=== PATIENT | male | born 1955 | race Caucasian/White ===

== ENCOUNTER 2017-12-27 17:15 | Inpatient (IN) | payer MEDICAID, OTHER ==
[2017-12-27] MEDS ORDERED: Sodium Chloride 0.9% 1,000 ML IV ONE ×2 (17:30→18:31)
[2017-12-27] MEDS ORDERED: Alum-Mag Hydrox-Simethicone Susp (30 mL) PO STA (17:31)
--- NOTE | 2017-12-27 17:42 | C.PDOC ---
History Of Present Illness 62 yo male c/o diarrhea and abdominal pain for 5 days. Pt notes he feels "gases " . (+) decrease appetite . Notes he was given an antibiotic from a neighbor for the symptoms. Also notes other family members had same symptoms with quicker resolution. Pt admits to having a h/o HTN and DM and has not taken his medication in 1.5+ yrs stating he can not afford the medication/doctor visits. ( +) weight loss (+) thirst. Denies chest pain , sob, dizziness, dysuria, urinary frequency, nausea or vomiting. Time Seen by Provider: 12/27/17 17:18 Chief Complaint (Nursing): Abdominal Pain History Per: Patient History/Exam Limitations: no limitations Onset/Duration Of Symptoms: Days (5) Current Symptoms Are (Timing): Still Present Past Medical History Vital Signs: Last Vital Signs Temp 97.8 F 12/27/17 17:25 Pulse 96 H 12/27/17 17:25 Resp 18 12/27/17 17:25 BP 157/101 H 12/27/17 17:25 Pulse Ox 97 12/27/17 17:43 - Medical History PMH: Arthritis, HTN Surgical History: Back Surgery Family History: States: Unknown Family Hx - Social History Hx Alcohol Use: No Hx Substance Use: No - Immunization History Hx Tetanus Toxoid Vaccination: No Hx Influenza Vaccination: No Hx Pneumococcal Vaccination: No Review Of Systems Except As Marked, All Systems Reviewed And Found Negative. Gastrointestinal: Positive for: Abdominal Pain, Diarrhea Physical Exam - Physical Exam Appears: Well, Non-toxic, No Acute Distress Skin: Normal Color, Warm, Dry Head: Atraumatic, Normacephalic Eye(s): bilateral: Normal Inspection, PERRL, EOMI Nose: Normal Oral Mucosa: Moist Neck: Normal, Normal ROM, Supple Chest: Symmetrical Cardiovascular: Rhythm Regular Respiratory: Normal Breath Sounds Gastrointestinal/Abdominal: Bowel Sounds, Soft, Tenderness (diffuse), Distention Back: Normal Inspection Extremity: Normal ROM Neurological/Psych: Oriented x3, Normal Speech ED Course And Treatment - Laboratory Results Result Diagrams: 12/27/17 18:00 O2 Sat by Pulse Oximetry: 97 - Other Rad Obstructive Series X-Ray: Interpreted by Me (Dr Sky), Viewed By Me Interpretation: (+) air fluid levels Progress Note: Case discussed and workup reviewed with Dr Sky, agree dupon plan and treatment. Case endorsed to Dr Pires pending labs, CT, and re -evalaution. Disposition - Disposition Disposition Time: 19:00 Condition: STABLE Forms: [employer] ([place]) - Clinical Impression Clinical Impression: Abdominal pain, Hypokalemia, HTN (hypertension), Diarrhea
[2017-12-27] MEDS ORDERED: Sodium Chloride 0.9% 1,000 ML ONE (17:46)
[2017-12-27] MEDS ORDERED: Alum-Mag Hydrox-Simethicone Susp (30 mL) ONE (17:46)
[2017-12-27 18:08] LABS: SQUAMOUS EPITHIAL < 1 /hpf (0-5); URINE BACTERIA RARE (<OCC); URINE BILIRUBIN NEGATIVE (NEGATIVE); URINE BLOOD NEGATIVE (NEGATIVE); URINE CLARITY Clear (Clear); URINE COLOR Yellow (YELLOW); URINE GLUCOSE (UA) 3+ mg/dL (Normal); URINE LEUKOCYTE ESTERASE NEG Leu/uL (Negative); URINE PROTEIN 2+ mg/dL (NEGATIVE); URINE UROBILINOGEN NORMAL mg/dL (0.2-1.0)
[2017-12-27 18:15] LABS: ALB/GLOB RATIO 1.2 (1.0-2.1); ALBUMIN 3.8 g/dL (3.5-5.0); ALT/SGPT 28 U/L (21-72); AST/SGOT 19 U/L (17-59); BLOOD UREA NITROGEN 18 mg/dL (9-20); CALCIUM 8.2 mg/dl (8.6-10.4); GFR AFRICAN-AMERICAN > 60; GFR NON-AFRICAN AMERICAN > 60; LIPASE 85 U/L (23-300)
[2017-12-27 18:21] LABS: LYMPH # 0.9 K/uL (1.0-4.3)
[2017-12-27] MEDS ORDERED: Iohexol 240 (50 ml) PO STA (18:28)
[2017-12-27] MEDS ORDERED: Iohexol 240 (50 ml) ONE (18:33)
[2017-12-27 18:38] LABS: BASO % 0.4 % (0.0-2.0); EOS % 0.2 % (0.0-4.0); HEMOGLOBIN 16.5 g/dL (12.0-18.0); LYMPH % 12.9 % (20.0-40.0); MEAN CORPUSCULAR HEMOGLOBIN 31.6 pg (27.0-31.0); MEAN CORPUSCULAR HGB CONC 35.9 g/dL (33.0-37.0); MEAN PLATELET VOLUME 8.3 fL (7.2-11.7); MONO # 1.3 K/uL (0.0-0.8); MONO % 17.9 % (0.0-10.0); NEUT % 68.6 % (50.0-75.0); NRBC % 0.1 % (0.0-2.0); RBC 5.23 Mil/uL (4.40-5.90); RED CELL DISTRIBUTION WIDTH 12.7 % (11.5-14.5); WHITE BLOOD COUNT 7.3 K/uL (4.8-10.8)
[2017-12-27] MEDS ORDERED: Iodixanol 320 MG/ML 200 ML BOTTLE IV ONE (20:02)
--- NOTE | 2017-12-27 21:19 | CT ---
EXAM: CT Abdomen and Pelvis With Intravenous Contrast CLINICAL HISTORY: 62 years old, male; Signs and symptoms; Other: Diarrhea x 4 days & abd pain; Patient HX: R/O obstruction; Additional info: R/ o obstruction TECHNIQUE: Axial computed tomography images of the abdomen and pelvis with intravenous contrast. All CT scans at this facility use one or more dose reduction techniques, viz.: automated exposure control; ma/kV adjustment per patient size (including targeted exams where dose is matched to indication; i.e. head); or iterative reconstruction technique. Coronal and sagittal reformatted images were created and reviewed. CONTRAST: 100 mL of visipaque administered intravenously. COMPARISON: No relevant prior studies available. FINDINGS: Lung bases: Minimal atelectasis/scarring. Heart: Coronary artery calcifications. Mediastinum: Moderate to large hiatal hernia. Mild mural thickening vs underdistention of distal esophagus. ABDOMEN: Liver: Unremarkable. No mass. Gallbladder and bile ducts: No calcified stones. No ductal dilation. Pancreas: No ductal dilation. No mass. Spleen: No splenomegaly. Adrenals: No mass. Kidneys and ureters: Mild stranding about kidneys, nonspecific. No hydronephrosis. Stomach and bowel: Mild to moderately dilated loops of mid small bowel. Nondistended loops of distal small bowel. Mild stranding within associated mesentery. No definite mural thickening. Appendix: Normal caliber. No inflammation. PELVIS: Bladder: Unremarkable. Reproductive: Enlarged prostate gland with indentation of bladder. ABDOMEN and PELVIS: Intraperitoneal space: Small free fluid within lower abdomen/upper pelvis. No free air. Bones/joints: Degenerative changes of spine. Few healing/healed rib fractures. Soft tissues: Small umbilical hernia containing fat. Small paraumbilical hernia containing fat. Small RIGHT inguinal hernia containing fat. Atrophy of right rectus femoris muscle. Scattered areas of heterotopic ossification within thighs. Vasculature: Mild atherosclerotic disease. No aneurysm. Lymph nodes: No pathologically enlarged lymph nodes. IMPRESSION: 1. Findings suggestive of small bowel obstruction. 2. Prostate enlargement. Followup as clinically warranted. 3. Incidental/non-acute findings are described above.
[2017-12-27] MEDS ORDERED: Sodium Chloride 0.9% 1,000 ML IV SCH (22:15)
--- NOTE | 2017-12-27 22:23 | CP.PCM.HP ---
Addendum entered and electronically signed by Tyron Esteves DO 12/28/17 03:57: patient requested to take NGT out at 4am NGT was removed by patient at 4am explained to patient if he develops more nausea/vomiting that we will have to replace NGT and patient agrees f/u obstruction series in AM Original Note: <Tyron Esteves - Last Filed: 12/27/17 23:10> History of Present Illness - History of Present Illness History of Present Illness: cc: Abdominal Pain, N/V/D for 3d PMD: Dr. Mejia, [facility] Code Status: Full Code This is a 62yo M w/ a PMhx of HTN and DM, currently not taking his medicine ( Metformin, and Lisinopril, does not remember dosages) who is coming in for a 5 day history of diarrhea, totally liquid, no blood in stools. He states that other people at home are currently with diarrhea as well, and he feels like they have been affected by the recent E. Coli outbreak; no one with blood in their stool and most people are vomiting and having diarrhea. He took loperamide , 2mg, twice, 3 days ago and 2 days ago, none yesterday or today. He has not been on DM or HTN meds in 3+ years. He states the abdominal pain started yesterday, band like in the epigastrium, that comes and goes and is described as pressure. He has never had this before. Denies any previous abdominal surgery. Denies headaches, chills, fevers,chills, chest pain, dysuria/frequency/ urgency, or lower extremity pain/swelling. Has never had colonoscopy. Meds: Metformin and Lisinopril unknown dose Allergies: Denies Surgeries: Spinal Fusion, many years ago Famhx: DM, HTN, stroke on both sides, prostate cancer in father who at 92 Social: former smoker, stopped 10 years ago, 50+ pack years, drinks 2 drinks per night of whiskey, denies all other illicit drugs Present on Admission - Present on Admission Any Indicators Present on Admission: No History of DVT/PE: No History of Uncontrolled Diabetes: Yes Urinary Catheter: No Decubitus Ulcer Present: No Past Patient History - Infectious Disease Hx of Infectious Diseases: None - Past Social History Smoking Status: Former Smoker - CARDIAC Hx Hypertension: Yes - ENDOCRINE/METABOLIC Hx Diabetes Mellitus Type 2: Yes - MUSCULOSKELETAL/RHEUMATOLOGICAL Hx Arthritis: Yes - PSYCHIATRIC Hx Substance Use: No - SURGICAL HISTORY Hx Surgeries: Yes - ANESTHESIA Hx Anesthesia: Yes Hx Anesthesia Reactions: No Meds Allergies/Adverse Reactions: Allergies Allergy/AdvReac Type Severity Reaction Status Date / Time No Known Allergies Allergy Verified 02/08/15 15:22 Physical Exam - Constitutional Appears: Well, Non-toxic, No Acute Distress - Head Exam Head Exam: ATRAUMATIC, NORMAL INSPECTION - Eye Exam Eye Exam: EOMI, Normal appearance, PERRL Pupil Exam: PERRL - ENT Exam ENT Exam: Mucous Membranes Moist - Neck Exam Neck exam: Positive for: Full Rom, Normal Inspection. Negative for: Lymphadenopathy, Thyromegaly - Respiratory Exam Respiratory Exam: Clear to Auscultation Bilateral, NORMAL BREATHING PATTERN. absent: Rales, Rhonchi, Wheezes - Cardiovascular Exam Cardiovascular Exam: REGULAR RHYTHM, +S1, +S2. absent: Diastolic murmur, Systolic Murmur - GI/Abdominal Exam GI & Abdominal Exam: Normal Bowel Sounds, Soft - Rectal Exam Rectal Exam: Deferred - Extremities Exam Extremities exam: Positive for: full ROM, normal inspection. Negative for: calf tenderness, joint swelling, pedal edema, tenderness - Back Exam Back exam: NORMAL INSPECTION. absent: CVA tenderness (L), CVA tenderness (R) - Neurological Exam Neurological exam: Alert, CN II-XII Intact, Normal Gait, Oriented x3 - Psychiatric Exam Psychiatric exam: Normal Affect, Normal Mood - Skin Skin Exam: Warm Results - Vital Signs Recent Vital Signs: Last Vital Signs Temp 98.8 F 12/27/17 19:39 Pulse 78 12/27/17 19:39 Resp 20 12/27/17 19:39 BP 149/84 12/27/17 19:39 Pulse Ox 95 12/27/17 19:39 - Labs Result Diagrams: 12/27/17 18:00 12/27/17 18:00 Labs: Laboratory Results - last 24 hr 12/27/17 12/27/17 12/27/17 18:00 18:00 18:00 WBC 7.3 RBC 5.23 Hgb 16.5 Hct 46.0 MCV 88.0 D MCH 31.6 H MCHC 35.9 RDW 12.7 Plt Count 237 MPV 8.3 Neut % (Auto) 68.6 Lymph % (Auto) 12.9 L Page % (Auto) 17.9 H Eos % (Auto) 0.2 Baso % (Auto) 0.4 Neut # (Auto) 5.0 Lymph # (Auto) 0.9 L Page # (Auto) 1.3 H Eos # (Auto) 0.0 Baso # (Auto) 0.0 Sodium 124 L Potassium 3.5 L Chloride 82 L Carbon Dioxide 23 Anion Gap 23 H BUN 18 Creatinine 0.7 L Est GFR ( Amer) > 60 Est GFR (Non-Af Amer) > 60 Random Glucose 294 H Calcium 8.2 L Total Bilirubin 1.1 AST 19 ALT 28 Alkaline Phosphatase 64 Total Protein 7.0 Albumin 3.8 Globulin 3.2 Albumin/Globulin Ratio 1.2 Lipase 85 Urine Color Yellow Urine Clarity Clear Urine pH 6.0 Ur Specific [place] 1.024 Urine Protein 2+ H Urine Glucose (UA) 3+ H Urine Ketones 1+ H Urine Blood Negative Urine Nitrate Negative Urine Bilirubin Negative Urine Urobilinogen Normal Ur Leukocyte Esterase Neg Urine WBC (Auto) 1 Urine RBC (Auto) < 1 Ur Squamous Epith Cells < 1 Urine Bacteria Rare Hyaline Casts 3-5 H Assessment & Plan - Assessment and Plan (Free Text) Assessment: 62yo M admitted for SBO SBO -NGT placed; 100ml fluid in ED -Surgical Consult placed; appreciate recs -NPO, IV pepcid daily -f/u obstructive series in AM to see passage of contrast Electrolyte Imbalance; hyponatremia/hyperglycemia/hypokalemia -patient is an uncontrolled diabetic; small ketones in blood -f/u hba1c; previous from 2014 was 8.3; has not been on meds for 3 years -NS w/ 20meq of potassium 150ml/hr -f/u BMP @4am, and morning labs; should correct with insulin/fluids; patient is ANOx3 with no neurological deficits Previous smoker -recommend low dose chest CT as outpatient -AAA screening at 65 History of HTN -will monitor -recommend lisinopril as patient has DM History of DM -insulin low dose -accuchecks ACHS -f/u hba1c for further management -lipid panel f/u -f/u TSH Prophylaxis -pepcid IV 20mg hanna with NGT -Heparin SC Case discussed and seen with Dr. Deanne Esteves PGY2 Decision To Admit - Pt Status Changed To: Hospital Disposition Of: Inpatient - Admit Certification Admit to Inpatient:: After my assessment, the patient will require hospitalization for at least two midnights. This is because of the severity of symptoms shown, intensity of services needed, and/or the medical risk in this patient being treated as an outpatient. - InPatient: Physician Admission Certification:: SBO - . Bed Request Type: Regular Admitting Physician: Johann Alicea <Johann Alicea - Last Filed: 12/28/17 07:40> Results - Vital Signs Recent Vital Signs: Last Vital Signs Temp 97.9 F 12/27/17 23:54 Pulse 75 12/27/17 23:54 Resp 18 12/28/17 00:31 BP 143/86 12/27/17 23:54 Pulse Ox 97 12/28/17 00:31 - Labs Result Diagrams: 12/27/17 18:00 12/27/17 18:00 Labs: Laboratory Results - last 24 hr 12/27/17 12/27/17 12/27/17 18:00 18:00 18:00 WBC 7.3 RBC 5.23 Hgb 16.5 Hct 46.0 MCV 88.0 D MCH 31.6 H MCHC 35.9 RDW 12.7 Plt Count 237 MPV 8.3 Neut % (Auto) 68.6 Lymph % (Auto) 12.9 L Page % (Auto) 17.9 H Eos % (Auto) 0.2 Baso % (Auto) 0.4 Neut # (Auto) 5.0 Lymph # (Auto) 0.9 L Page # (Auto) 1.3 H Eos # (Auto) 0.0 Baso # (Auto) 0.0 Sodium 124 L Potassium 3.5 L Chloride 82 L Carbon Dioxide 23 Anion Gap 23 H BUN 18 Creatinine 0.7 L Est GFR ( Amer) > 60 Est GFR (Non-Af Amer) > 60 POC Glucose (mg/dL) Random Glucose 294 H Calcium 8.2 L Total Bilirubin 1.1 AST 19 ALT 28 Alkaline Phosphatase 64 Total Protein 7.0 Albumin 3.8 Globulin 3.2 Albumin/Globulin Ratio 1.2 Lipase 85 Urine Color Yellow Urine Clarity Clear Urine pH 6.0 Ur Specific [place] 1.024 Urine Protein 2+ H Urine Glucose (UA) 3+ H Urine Ketones 1+ H Urine Blood Negative Urine Nitrate Negative Urine Bilirubin Negative Urine Urobilinogen Normal Ur Leukocyte Esterase Neg Urine WBC (Auto) 1 Urine RBC (Auto) < 1 Ur Squamous Epith Cells < 1 Urine Bacteria Rare Hyaline Casts 3-5 H Serum Ketones 12/27/17 12/27/17 12/28/17 22:27 22:36 07:07 WBC RBC Hgb Hct MCV MCH MCHC RDW Plt Count MPV Neut % (Auto) Lymph % (Auto) Page % (Auto) Eos % (Auto) Baso % (Auto) Neut # (Auto) Lymph # (Auto) Page # (Auto) Eos # (Auto) Baso # (Auto) Sodium Potassium Chloride Carbon Dioxide Anion Gap BUN Creatinine Est GFR ( Amer) Est GFR (Non-Af Amer) POC Glucose (mg/dL) 195 H 179 H Random Glucose Calcium Total Bilirubin AST ALT Alkaline Phosphatase Total Protein Albumin Globulin Albumin/Globulin Ratio Lipase Urine Color Urine Clarity Urine pH Ur Specific [place] Urine Protein Urine Glucose (UA) Urine Ketones Urine Blood Urine Nitrate Urine Bilirubin Urine Urobilinogen Ur Leukocyte Esterase Urine WBC (Auto) Urine RBC (Auto) Ur Squamous Epith Cells Urine Bacteria Hyaline Casts Serum Ketones Small Attending/Attestation - Attestation I have personally seen and examined this patient.: Yes I have fully participated in the care of the patient.: Yes I have reviewed all pertinent clinical information: Yes Notes (Text): SBP transition point in mid ilium, most likely from effect of loperamide used on apparent symptoms of gastroentritis which he and his family had. Hyponatremia, hypokalemia due to secretion of fluid in the small intestine Hiatal hernia on the ct, resulting coiling of NG, not draining much, hence removed H/o DM, not compliant with meds, stated on insulin sliding scale. Plan Since NG is out, hoping small bowel will be able to push fluid, f/u AXR or CT, BM may suggest recovery NPO, IVF Insulin sliding scale Gi/DVT prophylaxis See orders for detail.
[2017-12-27] MEDS ORDERED: Dextrose 50% SYRINGE Inj (50 ml) IV PRN (22:24)
[2017-12-27] MEDS ORDERED: Glucagon Recombinant 1 mg Inj IM PRN (22:24)
--- NOTE | 2017-12-27 22:32 | CP.PCM.CON ---
History of Present Illness - History of Present Illness History of Present Illness: General Surgery - Dr. Grimm 62 yo M w/ hx of HTN and DM (currently not taking his meds), presenting with Diarrhea x 5 days which progressed to diffuse abdominal pain today. Pt states he began having watery diarrhea 5 days ago, non-bloody, and vomited 1x when it first began. He denies having any abdominal pain until today when he developed diffuse abdominal pain described as gas/bloated feeling. He states he's never had this before. He denies any Fevers/Chills, Nausea/Vomiting currently, Constipation. Pt also notes that family members at home have also been sick with diarrhea the past few days, possible food poisoning. PMH: HTN and DM (Off meds for about a year) PSH: Back surgery No current meds (formerly Metformin and Lisinopril) NKDA CT with PO contrast was done in the ED which showed moderately dilated loops of small bowel up to the mid portion with collapsed loops distally. Surgery was consulted for SBO. Review of Systems - Review of Systems All systems: reviewed and no additional remarkable complaints except (as per HPI ) Past Patient History - Past Social History Smoking Status: Former Smoker - CARDIAC Hx Hypertension: Yes - ENDOCRINE/METABOLIC Hx Diabetes Mellitus Type 2: Yes - MUSCULOSKELETAL/RHEUMATOLOGICAL Hx Arthritis: Yes - PSYCHIATRIC Hx Substance Use: No - SURGICAL HISTORY Hx Surgeries: Yes - ANESTHESIA Hx Anesthesia: Yes Hx Anesthesia Reactions: No Meds Allergies/Adverse Reactions: Allergies Allergy/AdvReac Type Severity Reaction Status Date / Time No Known Allergies Allergy Verified 02/08/15 15:22 - Medications Medications: Current Medications Heparin Sodium (Porcine) (Heparin) 5,000 units SC Q12 [facility] Sodium Chloride (Sodium Chloride 0.9%) 1,000 mls @ 100 mls/hr IV .Q10H ONE Stop: 12/28/17 04:30 Last Admin: 12/27/17 18:37 Dose: 100 mls/hr Sodium Chloride (Sodium Chloride 0.9%) 1,000 mls @ 150 mls/hr IV .Q6H40M [facility] Dextrose (Dextrose 5% In Water 1000 Ml) 1,000 mls @ 0 mls/hr IV .Q0M PRN; Protocol; Per Protocol PRN Reason: Hypoglycemia Protocol Insulin Aspart (Novolog) 0 unit SC ACHS [facility] PRN Reason: Protocol Ketorolac Tromethamine (Toradol) 30 mg IV Q6 PRN PRN Reason: Pain, moderate (4-7) Physical Exam - Constitutional Appears: No Acute Distress - Head Exam Head Exam: ATRAUMATIC, NORMAL INSPECTION, NORMOCEPHALIC - Eye Exam Eye Exam: Normal appearance - ENT Exam ENT Exam: Mucous Membranes Dry - Respiratory Exam Respiratory Exam: NORMAL BREATHING PATTERN. absent: Respiratory Distress - Cardiovascular Exam Cardiovascular Exam: REGULAR RHYTHM - GI/Abdominal Exam GI & Abdominal Exam: Distended (mild), Hernia (small umbilical and inguinal hernias, easily reducible, no appreciable bowel contents), Soft. absent: Firm, Guarding, Rebound, Rigid, Tenderness - Neurological Exam Neurological exam: Alert, Oriented x3 - Psychiatric Exam Psychiatric exam: Normal Affect, Normal Mood - Skin Skin Exam: Dry, Intact Results - Vital Signs Recent Vital Signs: Last Vital Signs Temp 98.8 F 12/27/17 19:39 Pulse 78 12/27/17 19:39 Resp 20 12/27/17 19:39 BP 149/84 12/27/17 19:39 Pulse Ox 95 12/27/17 19:39 - Labs Result Diagrams: 12/27/17 18:00 12/27/17 18:00 Labs: Laboratory Results - last 24 hr 12/27/17 12/27/17 12/27/17 18:00 18:00 18:00 WBC 7.3 RBC 5.23 Hgb 16.5 Hct 46.0 MCV 88.0 D MCH 31.6 H MCHC 35.9 RDW 12.7 Plt Count 237 MPV 8.3 Neut % (Auto) 68.6 Lymph % (Auto) 12.9 L [place] % (Auto) 17.9 H Eos % (Auto) 0.2 Baso % (Auto) 0.4 Neut # (Auto) 5.0 Lymph # (Auto) 0.9 L [place] # (Auto) 1.3 H Eos # (Auto) 0.0 Baso # (Auto) 0.0 Sodium 124 L Potassium 3.5 L Chloride 82 L Carbon Dioxide 23 Anion Gap 23 H BUN 18 Creatinine 0.7 L Est GFR ( Amer) > 60 Est GFR (Non-Af Amer) > 60 Random Glucose 294 H Calcium 8.2 L Total Bilirubin 1.1 AST 19 ALT 28 Alkaline Phosphatase 64 Total Protein 7.0 Albumin 3.8 Globulin 3.2 Albumin/Globulin Ratio 1.2 Lipase 85 Urine Color Yellow Urine Clarity Clear Urine pH 6.0 Ur Specific [place] 1.024 Urine Protein 2+ H Urine Glucose (UA) 3+ H Urine Ketones 1+ H Urine Blood Negative Urine Nitrate Negative Urine Bilirubin Negative Urine Urobilinogen Normal Ur Leukocyte Esterase Neg Urine WBC (Auto) 1 Urine RBC (Auto) < 1 Ur Squamous Epith Cells < 1 Urine Bacteria Rare Hyaline Casts 3-5 H - Imaging and Cardiology CT scan - abdomen Status: Image reviewed by me, Report reviewed by me Assessment & Plan - Assessment and Plan (Free Text) Assessment: 62M w/ HTN, DM, with Gastroenteritis vs. SBO in setting of no prior abdominal surgery -NPO and IVF hydration -NGT if vomits -Abd Flat plate in AM to assess migration of contrast -If no improvement will plan for diagnostic laparoscopy DW Dr Alfa Hernandes PGY3
[2017-12-28] MEDS: (Novolog) Insulin Aspart, Recombinant 100 u/ml 10 ml vial SC SCH ×5 (08:08→21:49)
--- NOTE | 2017-12-28 08:08 | RAD ---
Chest x-ray single frontal view History: NG tube placement. Comparison: None available. Findings: X-rays somewhat under penetrated. Repeat study may be helpful. Endotracheal tube with distal tip not well visualized, possibly 9 millimeters above the srinivasan. Repeat study may be helpful. Mild venous congestion. Tortuous aorta. Mild cardiomegaly. Impression: X-rays somewhat under penetrated. Repeat study may be helpful. Endotracheal tube with distal tip not well visualized, possibly 9 millimeters above the srinivasan. Repeat study may be helpful. Mild venous congestion. Tortuous aorta. Mild cardiomegaly.
[2017-12-28 08:13] LABS: LDL CHOLESTEROL 89 mg/dL (0-129)
[2017-12-28 08:18] LABS: ALBUMIN 2.9 g/dL (3.5-5.0); ALT/SGPT 21 U/L (21-72); AST/SGOT 23 U/L (17-59); BLOOD UREA NITROGEN 11 mg/dL (9-20); CALCIUM 7.6 mg/dl (8.6-10.4); GFR AFRICAN-AMERICAN > 60; GFR NON-AFRICAN AMERICAN > 60; HDL CHOLESTEROL 32 mg/dL (30-70)
[2017-12-28 08:21] LABS: BASO % 0.3 % (0.0-2.0); EOS % 0.6 % (0.0-4.0); LYMPH # 1.3 K/uL (1.0-4.3); MEAN CELL VOLUME 88.8 fL (80.0-94.0); MEAN PLATELET VOLUME 7.7 fL (7.2-11.7); MONO # 0.8 K/uL (0.0-0.8); MONO % 16.4 % (0.0-10.0); NEUT # 2.8 K/uL (1.8-7.0); NEUT % 56.7 % (50.0-75.0); NRBC % 0.1 % (0.0-2.0); RBC 4.39 Mil/uL (4.40-5.90); RED CELL DISTRIBUTION WIDTH 12.4 % (11.5-14.5); WHITE BLOOD COUNT 4.9 K/uL (4.8-10.8)
[2017-12-28 08:23] VITALS: RESP 20
--- NOTE | 2017-12-28 08:24 | RAD ---
Abdomen four views History: Abdominal pain Comparison: None available. Findings: Mild venous congestion. Patchy increased markings at the left lung base. Top normal heart size. Degenerative changes in the spine with paravertebral osteophytes. Multiple dilated loops of small bowel seen within the abdomen with associated fluid levels concerning for a partial or developing bowel obstruction. Air seen in the colon. Degenerative changes in the osseous structures including the spine. Degenerative changes of the bilateral hips with productive change noted at the bilateral acetabula. Impression: Findings concerning for a partial or developing small bowel obstruction. Clinical correlation.
--- NOTE | 2017-12-28 08:56 | CP.PCM.PN ---
Subjective - Date & Time of Evaluation Date of Evaluation: 12/28/17 Time of Evaluation: 07:00 - Subjective Subjective: Surgery: Dr. Grimm Pt seen and examined. No acute overnight events. States he feels well and pain is resolved. Pt admits to flatus but denies BM. Denies N/V, F/C. Objective - Vital Signs/Intake and Output Vital Signs (last 24 hours): Temp Pulse Resp BP Pulse Ox 98.6 F 74 20 130/70 100 12/28/17 08:22 12/28/17 08:22 12/28/17 08:22 12/28/17 08:22 12/28/17 08:22 - Medications Medications: Current Medications Dextrose (Dextrose 50% Inj) 0 ml IV STAT PRN; Protocol PRN Reason: Hypoglycemia Protocol Dextrose (Glutose 15) 0 gm PO ONCE PRN; Protocol PRN Reason: Hypoglycemia Protocol Famotidine (Pepcid) 20 mg IVP DAILY [facility] Glucagon (Glucagen Diagnostic Kit) 0 mg IM STAT PRN; Protocol PRN Reason: Hypoglycemia Protocol Heparin Sodium (Porcine) (Heparin) 5,000 units SC Q12 [facility] Dextrose (Dextrose 5% In Water 1000 Ml) 1,000 mls @ 0 mls/hr IV .Q0M PRN; Protocol; Per Protocol PRN Reason: Hypoglycemia Protocol Potassium Chloride 20 meq/ (Sodium Chloride) 1,010 mls @ 150 mls/hr IV .Q6H44M [facility] Last Admin: 12/28/17 00:18 Dose: 150 mls/hr Insulin Aspart (Novolog) 0 unit SC ACHS [facility] PRN Reason: Protocol Last Admin: 12/28/17 08:30 Dose: 1 unit Ketorolac Tromethamine (Toradol) 30 mg IV Q6 PRN PRN Reason: Pain, moderate (4-7) Pneumococcal Polyvalent Vaccine (Pneumovax 23 Vaccine) 0.5 ml IM .ONCE ONE Stop: 12/29/17 10:01 - Labs Labs: 12/28/17 07:20 12/28/17 07:20 - Constitutional Appears: Well, No Acute Distress - Head Exam Head Exam: ATRAUMATIC, NORMOCEPHALIC - ENT Exam ENT Exam: Mucous Membranes Moist - Respiratory Exam Respiratory Exam: NORMAL BREATHING PATTERN - Cardiovascular Exam Cardiovascular Exam: RRR - GI/Abdominal Exam GI & Abdominal Exam: Soft. absent: Distended, Guarding, Tenderness - Neurological Exam Neurological Exam: Alert, Awake, Oriented x3 - Skin Skin Exam: Dry, Warm Assessment and Plan - Assessment and Plan (Free Text) Assessment: 62M admitted for SBO vs Gastroenteritis Plan: - f/u abdominal X-ray - start CLD - monitor bowel function - d/w Dr. Alfa Bartholomew, PGY-3
--- NOTE | 2017-12-28 09:00 | CP.PCM.PN ---
<Lilly Cook - Last Filed: 12/28/17 14:22> Subjective - Date & Time of Evaluation Date of Evaluation: 12/28/17 Time of Evaluation: 07:00 - Subjective Subjective: PGY1-Medicine Note Patient seen and examined at bedside and in no acute distress. Patient feeling much better and says his abdominal pain has resolved. Patient has not had a bowel movement, but is passing gas. Patient denies any chest pain, shortness of breath, nausea, vomiting. Objective - Vital Signs/Intake and Output Vital Signs (last 24 hours): Temp Pulse Resp BP Pulse Ox 98.6 F 74 20 130/70 100 12/28/17 08:22 12/28/17 08:22 12/28/17 08:22 12/28/17 08:22 12/28/17 08:22 - Medications Medications: Current Medications Dextrose (Dextrose 50% Inj) 0 ml IV STAT PRN; Protocol PRN Reason: Hypoglycemia Protocol Dextrose (Glutose 15) 0 gm PO ONCE PRN; Protocol PRN Reason: Hypoglycemia Protocol Famotidine (Pepcid) 20 mg IVP DAILY [facility] Glucagon (Glucagen Diagnostic Kit) 0 mg IM STAT PRN; Protocol PRN Reason: Hypoglycemia Protocol Heparin Sodium (Porcine) (Heparin) 5,000 units SC Q12 [facility] Dextrose (Dextrose 5% In Water 1000 Ml) 1,000 mls @ 0 mls/hr IV .Q0M PRN; Protocol; Per Protocol PRN Reason: Hypoglycemia Protocol Potassium Chloride 20 meq/ (Sodium Chloride) 1,010 mls @ 150 mls/hr IV .Q6H44M [facility] Last Admin: 12/28/17 00:18 Dose: 150 mls/hr Insulin Aspart (Novolog) 0 unit SC ACHS [facility] PRN Reason: Protocol Last Admin: 12/28/17 08:30 Dose: 1 unit Ketorolac Tromethamine (Toradol) 30 mg IV Q6 PRN PRN Reason: Pain, moderate (4-7) Pneumococcal Polyvalent Vaccine (Pneumovax 23 Vaccine) 0.5 ml IM .ONCE ONE Stop: 12/29/17 10:01 - Labs Labs: 12/28/17 07:20 12/28/17 07:20 - Additional Findings Additional findings: - Constitutional Appears: Well, Non-toxic, No Acute Distress - Head Exam Head Exam: ATRAUMATIC, NORMAL INSPECTION - Eye Exam Eye Exam: EOMI, Normal appearance, PERRL Pupil Exam: PERRL - ENT Exam ENT Exam: Mucous Membranes Moist - Neck Exam Neck exam: Positive for: Full Rom, Normal Inspection. Negative for: Lymphadenopathy, Thyromegaly - Respiratory Exam Respiratory Exam: Clear to Auscultation Bilateral, NORMAL BREATHING PATTERN. absent: Rales, Rhonchi, Wheezes - Cardiovascular Exam Cardiovascular Exam: REGULAR RHYTHM, +S1, +S2. absent: Diastolic murmur, Systolic Murmur - GI/Abdominal Exam GI & Abdominal Exam: Normal Bowel Sounds, Soft - Rectal Exam Rectal Exam: Deferred - Extremities Exam Extremities exam: Positive for: full ROM, normal inspection. Negative for: calf tenderness, joint swelling, pedal edema, tenderness - Back Exam Back exam: NORMAL INSPECTION. absent: CVA tenderness (L), CVA tenderness (R) - Neurological Exam Neurological exam: Alert, CN II-XII Intact, Normal Gait, Oriented x3 - Psychiatric Exam Psychiatric exam: Normal Affect, Normal Mood Assessment and Plan - Assessment and Plan (Free Text) Assessment: SBO -Surgical Consult placed; appreciate recs -obstructive series: consistent with small-bowel obstruction -start CLD Electrolyte Imbalance; hyponatremia/hyperglycemia/hypokalemia -patient is an uncontrolled diabetic; small ketones in blood -hba1c: 11.3 -NS w/ 20meq of potassium 150ml/hr Previous smoker -recommend low dose chest CT as outpatient -AAA screening at 65 History of HTN -will monitor -recommend lisinopril as patient has DM History of DM -insulin low dose -accuchecks ACHS -HgA1C: 11.3 -lipid panel: triglycerides-108, Cholesterol-144, LDL-89, HDL-32 -TSH- .71 Prophylaxis -protonix 40mg ivp daily -Heparin 5000 u SC q 12h <Essie Moreno - Last Filed: 12/30/17 16:53> Objective - Vital Signs/Intake and Output Vital Signs (last 24 hours): Temp Pulse Resp BP Pulse Ox 98.9 F 66 20 173/81 H 97 12/30/17 07:53 12/30/17 07:53 12/30/17 07:53 12/30/17 07:53 12/30/17 07:53 Intake and Output: 12/30/17 12/30/17 06:59 18:59 Intake Total 240 Balance 240 - Labs Labs: 12/30/17 07:09 12/30/17 07:09 Attending/Attestation - Attestation I have personally seen and examined this patient.: Yes I have fully participated in the care of the patient.: Yes I have reviewed all pertinent clinical information, including history, physical exam and plan: Yes Notes (Text): Patient was seen and examined by me with the resident. Patient's pain is improving.Started on clear liquid diet 1.SBO 2.Electrolyte Imbalance 3.Previous smoker 4.History of HTN 5. History of DM 6.Prophylaxis Assessment and the plan discussed with the resident.I agree with the documentation of the resident
--- NOTE | 2017-12-28 09:38 | RAD ---
Abdomen three views History: Small bowel obstruction. Comparison: CT scan dated 12/27/2017 Findings: Again identified are multiple dilated loops of small bowel throughout the abdomen. Contrast seen in the colon. Degenerative changes in the spine and bilateral hips. Linear and/or nodular consolidative changes at the left lung base. Tortuous ectatic aorta. Impression: Findings consistent with a small-bowel obstruction.
[2017-12-29 06:34] LABS: BASO % 0.5 % (0.0-2.0); EOS # 0.1 K/uL (0.0-0.7); EOS % 0.9 % (0.0-4.0); HEMOGLOBIN 13.5 g/dL (12.0-18.0); LYMPH # 1.1 K/uL (1.0-4.3); MEAN CELL VOLUME 89.3 fL (80.0-94.0); MEAN CORPUSCULAR HEMOGLOBIN 31.3 pg (27.0-31.0); MEAN CORPUSCULAR HGB CONC 35.1 g/dL (33.0-37.0); MEAN PLATELET VOLUME 7.8 fL (7.2-11.7); MONO # 0.9 K/uL (0.0-0.8); MONO % 14.1 % (0.0-10.0); NEUT # 4.1 K/uL (1.8-7.0); NEUT % 66.5 % (50.0-75.0); RBC 4.32 Mil/uL (4.40-5.90); RED CELL DISTRIBUTION WIDTH 12.5 % (11.5-14.5); WHITE BLOOD COUNT 6.1 K/uL (4.8-10.8)
[2017-12-29 06:53] LABS: ALBUMIN 2.7 g/dL (3.5-5.0); ALT/SGPT 29 U/L (21-72); AST/SGOT 19 U/L (17-59); BLOOD UREA NITROGEN 3 mg/dL (9-20); CALCIUM 7.5 mg/dl (8.6-10.4); GFR AFRICAN-AMERICAN > 60; GFR NON-AFRICAN AMERICAN > 60
--- NOTE | 2017-12-29 08:05 | CP.PCM.PN ---
Subjective - Date & Time of Evaluation Date of Evaluation: 12/29/17 Time of Evaluation: 08:03 - Subjective Subjective: General surgery - Dr. Grimm Pt S&E. ERIN. Pt denies any pain. He tolerated clear liquid diet yesterday and states he had mix of liquid and solid stool BMs x2 yesterday, also passing flatus. He has been OOB ambulating. No Nausea/Vomiting, Fevers/Chills, SOB/ Chest pain. Objective - Vital Signs/Intake and Output Vital Signs (last 24 hours): Temp Pulse Resp BP Pulse Ox 98.8 F 80 20 143/83 97 12/28/17 23:48 12/28/17 23:48 12/28/17 23:48 12/28/17 23:48 12/28/17 23:48 Intake and Output: 12/29/17 12/29/17 06:59 18:59 Intake Total 2840 Balance 2840 - Medications Medications: Current Medications Dextrose (Dextrose 50% Inj) 0 ml IV STAT PRN; Protocol PRN Reason: Hypoglycemia Protocol Dextrose (Glutose 15) 0 gm PO ONCE PRN; Protocol PRN Reason: Hypoglycemia Protocol Glucagon (Glucagen Diagnostic Kit) 0 mg IM STAT PRN; Protocol PRN Reason: Hypoglycemia Protocol Heparin Sodium (Porcine) (Heparin) 5,000 units SC Q12 [facility] Last Admin: 12/28/17 21:30 Dose: 5,000 units Dextrose (Dextrose 5% In Water 1000 Ml) 1,000 mls @ 0 mls/hr IV .Q0M PRN; Protocol; Per Protocol PRN Reason: Hypoglycemia Protocol Potassium Phosphate 30 mmole/ (Sodium Chloride) 260 mls @ 42.5 mls/hr IVPB ONCE ONE Stop: 12/29/17 14:08 Insulin Aspart (Novolog) 0 unit SC ACHS [facility] PRN Reason: Protocol Last Admin: 12/28/17 21:49 Dose: Not Given Ketorolac Tromethamine (Toradol) 30 mg IV Q6 PRN PRN Reason: Pain, moderate (4-7) Pantoprazole Sodium (Protonix Inj) 40 mg IVP DAILY [facility] Last Admin: 12/28/17 11:46 Dose: 40 mg Pneumococcal Polyvalent Vaccine (Pneumovax 23 Vaccine) 0.5 ml IM .ONCE ONE Stop: 12/29/17 10:01 - Labs Labs: 12/29/17 06:27 12/29/17 06:27 - Constitutional Appears: No Acute Distress - Head Exam Head Exam: ATRAUMATIC, NORMAL INSPECTION, NORMOCEPHALIC - Eye Exam Eye Exam: Normal appearance - Respiratory Exam Respiratory Exam: NORMAL BREATHING PATTERN. absent: Respiratory Distress - GI/Abdominal Exam GI & Abdominal Exam: Soft. absent: Distended, Guarding, Rigid, Tenderness, Rebound - Neurological Exam Neurological Exam: Alert, Oriented x3 - Psychiatric Exam Psychiatric exam: Normal Affect, Normal Mood - Skin Skin Exam: Dry, Intact Assessment and Plan - Assessment and Plan (Free Text) Assessment: 62M w/ SBO vs Gastroenteritis, resolving Plan: -Soft diet -If tolerates diet pt is clear for D/C home from surgical standpoint - GELA Hernandes PGY3
[2017-12-29] MEDS: (Novolog) Insulin Aspart, Recombinant 100 u/ml 10 ml vial SC SCH ×4 (08:47→21:32)
[2017-12-29] MEDS ORDERED: Potassium Phosphate 30 MMOLE in Sodium Chloride 0.9% 500 ML IVPB ONE (09:00)
[2017-12-29] MEDS ORDERED: Pneumococcal 23-Valent Vaccine IM ONE (10:00)
[2017-12-29] MEDS ORDERED: Simethicone 80 mg Chewtab PO ONE (13:52)
--- NOTE | 2017-12-29 14:20 | CP.PCM.PN ---
<Lilly Cook - Last Filed: 12/29/17 14:16> Subjective - Date & Time of Evaluation Date of Evaluation: 12/29/17 Time of Evaluation: 07:00 - Subjective Subjective: PGY1- Medicine Note Patient seen and examined at bedside this morning and in no acute distress. Patient was feeling much better, had a bowel movement yesterday, and continues having gas. Patient ate breakfast this morning and was feeling okay. Patient was going to be discharged, but developed abdominal pain this early afternoon. Patient says his pain is 7/10 and has a lot of gas. Patient feels very distended and uncomfortable. Patient says he only had a small amount of soup for lunch. Patient has not had a bowel movement today. Patient has not had nausea or vomiting. Objective - Vital Signs/Intake and Output Vital Signs (last 24 hours): Temp Pulse Resp BP Pulse Ox 98.5 F 69 20 134/79 95 12/29/17 08:00 12/29/17 08:00 12/29/17 08:00 12/29/17 08:00 12/29/17 08:00 Intake and Output: 12/29/17 12/29/17 06:59 18:59 Intake Total 2840 Balance 2840 - Medications Medications: Current Medications Dextrose (Dextrose 50% Inj) 0 ml IV STAT PRN; Protocol PRN Reason: Hypoglycemia Protocol Dextrose (Glutose 15) 0 gm PO ONCE PRN; Protocol PRN Reason: Hypoglycemia Protocol Glucagon (Glucagen Diagnostic Kit) 0 mg IM STAT PRN; Protocol PRN Reason: Hypoglycemia Protocol Heparin Sodium (Porcine) (Heparin) 5,000 units SC Q12 [facility] Last Admin: 12/29/17 11:11 Dose: 5,000 units Dextrose (Dextrose 5% In Water 1000 Ml) 1,000 mls @ 0 mls/hr IV .Q0M PRN; Protocol; Per Protocol PRN Reason: Hypoglycemia Protocol Potassium Phosphate 30 mmole/ (Sodium Chloride) 510 mls @ 42.5 mls/hr IVPB ONCE ONE Stop: 12/29/17 20:59 Last Admin: 12/29/17 09:16 Dose: 42.5 mls/hr Insulin Aspart (Novolog) 0 unit SC ACHS [facility] PRN Reason: Protocol Last Admin: 12/29/17 12:07 Dose: 2 unit Ketorolac Tromethamine (Toradol) 30 mg IV Q6 PRN PRN Reason: Pain, moderate (4-7) Pantoprazole Sodium (Protonix Inj) 40 mg IVP DAILY [facility] Last Admin: 12/29/17 11:11 Dose: 40 mg - Labs Labs: 12/29/17 06:27 12/29/17 06:27 - Constitutional Appears: Non-toxic, No Acute Distress - Head Exam Head Exam: ATRAUMATIC, NORMAL INSPECTION, NORMOCEPHALIC - Eye Exam Eye Exam: EOMI, Normal appearance - ENT Exam ENT Exam: Mucous Membranes Moist - Respiratory Exam Respiratory Exam: Clear to Ausculation Bilateral, NORMAL BREATHING PATTERN. absent: Rales, Rhonchi, Wheezes, Respiratory Distress, Stridor - Cardiovascular Exam Cardiovascular Exam: REGULAR RHYTHM, RRR, +S1, +S2 - GI/Abdominal Exam GI & Abdominal Exam: Distended, Guarding, Soft, Tenderness, Hyperactive Bowel Sounds - Extremities Exam Extremities Exam: Full ROM, Normal Inspection. absent: Pedal Edema, Tenderness - Neurological Exam Neurological Exam: Alert, Awake, Oriented x3 - Psychiatric Exam Psychiatric exam: Normal Affect, Normal Mood - Skin Skin Exam: Intact, Normal Color, Warm Assessment and Plan - Assessment and Plan (Free Text) Assessment: SBO -Surgical Consult placed; appreciate recs -obstructive series: consistent with small-bowel obstruction -started on full diet today and had abdominal pain/ bloating, patient switched back to full liquid diet -Simethicone q6h prn Electrolyte Imbalance; hyponatremia/hyperglycemia/hypokalemia -patient is an uncontrolled diabetic; small ketones in blood -hba1c: 11.3 Previous smoker -recommend low dose chest CT as outpatient -AAA screening at 65 History of HTN -will monitor -recommend lisinopril as patient has DM History of DM -insulin low dose -accuchecks ACHS -hypoglycemia protocol -HgA1C: 11.3 -lipid panel: triglycerides-108, Cholesterol-144, LDL-89, HDL-32 -TSH- .71 Prophylaxis -protonix 40mg ivp daily -Heparin 5000 u SC q 12h <Essie Moreno - Last Filed: 12/30/17 16:59> Objective - Vital Signs/Intake and Output Vital Signs (last 24 hours): Temp Pulse Resp BP Pulse Ox 98.9 F 66 20 173/81 H 97 12/30/17 07:53 12/30/17 07:53 12/30/17 07:53 12/30/17 07:53 12/30/17 07:53 Intake and Output: 12/30/17 12/30/17 06:59 18:59 Intake Total 240 Balance 240 - Labs Labs: 12/30/17 07:09 12/30/17 07:09 Attending/Attestation - Attestation I have personally seen and examined this patient.: Yes I have fully participated in the care of the patient.: Yes I have reviewed all pertinent clinical information, including history, physical exam and plan: Yes Notes (Text): Patient was seen andexamined by me He was feeling better and was tolerating diet in the morning.Later developed discomfort and bloating with full diet Abdomen was soft and nontender on examination Discharge postponed .Re evaluate in the morning.Discussed about diet I agree with the resident's documentation of the assessment and the plan
[2017-12-29] MEDS ORDERED: Simethicone 80 mg Chewtab PO PRN (14:23)
[2017-12-30 07:30] LABS: BASO % 0.6 % (0.0-2.0); EOS # 0.2 K/uL (0.0-0.7); EOS % 2.8 % (0.0-4.0); HEMOGLOBIN 13.6 g/dL (12.0-18.0); LYMPH # 1.4 K/uL (1.0-4.3); LYMPH % 23.6 % (20.0-40.0); MEAN CELL VOLUME 89.5 fL (80.0-94.0); MEAN CORPUSCULAR HEMOGLOBIN 31.9 pg (27.0-31.0); MEAN CORPUSCULAR HGB CONC 35.6 g/dL (33.0-37.0); MEAN PLATELET VOLUME 7.8 fL (7.2-11.7); MONO # 0.7 K/uL (0.0-0.8); MONO % 12.2 % (0.0-10.0); NEUT # 3.7 K/uL (1.8-7.0); NEUT % 60.8 % (50.0-75.0); NRBC % 0.2 % (0.0-2.0); RBC 4.25 Mil/uL (4.40-5.90); RED CELL DISTRIBUTION WIDTH 12.6 % (11.5-14.5); WHITE BLOOD COUNT 6.1 K/uL (4.8-10.8)
[2017-12-30 07:47] LABS: ALBUMIN 2.8 g/dL (3.5-5.0); ALT/SGPT 32 U/L (21-72); AST/SGOT 27 U/L (17-59); BLOOD UREA NITROGEN 2 mg/dL (9-20); CALCIUM 8.1 mg/dl (8.6-10.4); GFR AFRICAN-AMERICAN > 60; GFR NON-AFRICAN AMERICAN > 60
[2017-12-30 07:55] VITALS: BP 173/81; PULSE 66; TEMP 98.9; O2SAT 97
[2017-12-30] MEDS: (Novolog) Insulin Aspart, Recombinant 100 u/ml 10 ml vial SC SCH (08:43)
--- NOTE | 2017-12-30 09:43 | CP.PCM.DIS ---
<Lilly Cook - Last Filed: 12/30/17 09:39> Provider - Provider Date of Admission: 12/27/17 21:49 Attending physician: Johann Alicea MD Consults: Dr. Grimm (surgery) Time Spent in preparation of Discharge (in minutes): 40 Diagnosis - Discharge Diagnosis (1) SBO (small bowel obstruction) Status: Resolved (2) Abdominal pain Status: Resolved (3) Diabetes Status: Chronic (4) HTN (hypertension) Status: Chronic Hospital Course - Lab Results Lab Results: Most Recent Lab Values WBC 6.1 K/uL (4.8-10.8) 12/30/17 07:09 RBC 4.25 Mil/uL (4.40-5.90) L 12/30/17 07:09 Hgb 13.6 g/dL (12.0-18.0) 12/30/17 07:09 Hct 38.1 % (35.0-51.0) 12/30/17 07:09 MCV 89.5 fL (80.0-94.0) 12/30/17 07:09 MCH 31.9 pg (27.0-31.0) H 12/30/17 07:09 MCHC 35.6 g/dL (33.0-37.0) 12/30/17 07:09 RDW 12.6 % (11.5-14.5) 12/30/17 07:09 Plt Count 296 K/uL (130-400) 12/30/17 07:09 MPV 7.8 fL (7.2-11.7) 12/30/17 07:09 Neut % (Auto) 60.8 % (50.0-75.0) 12/30/17 07:09 Lymph % (Auto) 23.6 % (20.0-40.0) 12/30/17 07:09 [place] % (Auto) 12.2 % (0.0-10.0) H 12/30/17 07:09 Eos % (Auto) 2.8 % (0.0-4.0) 12/30/17 07:09 Baso % (Auto) 0.6 % (0.0-2.0) 12/30/17 07:09 Neut # (Auto) 3.7 K/uL (1.8-7.0) 12/30/17 07:09 Lymph # (Auto) 1.4 K/uL (1.0-4.3) 12/30/17 07:09 [place] # (Auto) 0.7 K/uL (0.0-0.8) 12/30/17 07:09 Eos # (Auto) 0.2 K/uL (0.0-0.7) 12/30/17 07:09 Baso # (Auto) 0.0 K/uL (0.0-0.2) 12/30/17 07:09 Sodium 134 mmol/L (132-148) 12/30/17 07:09 Potassium 3.7 mmol/L (3.6-5.2) 12/30/17 07:09 Chloride 99 mmol/L (98-107) 12/30/17 07:09 Carbon Dioxide 27 mmol/L (22-30) 12/30/17 07:09 Anion Gap 12 (10-20) 12/30/17 07:09 BUN 2 mg/dL (9-20) L 12/30/17 07:09 Creatinine 0.6 mg/dL (0.8-1.5) L 12/30/17 07:09 Est GFR ( Amer) > 60 12/30/17 07:09 Est GFR (Non-Af Amer) > 60 12/30/17 07:09 POC Glucose (mg/dL) 175 mg/dL (65-110) H 12/30/17 07:07 Random Glucose 182 mg/dL (75-110) H 12/30/17 07:09 Hemoglobin A1c 11.3 % (4.2-6.5) H D 12/28/17 07:20 Calcium 8.1 mg/dl (8.6-10.4) L 12/30/17 07:09 Phosphorus 2.8 mg/dL (2.5-4.5) 12/30/17 07:09 Magnesium 1.9 mg/dL (1.6-2.3) 12/30/17 07:09 Total Bilirubin 0.5 mg/dL (0.2-1.3) 12/30/17 07:09 AST 27 U/L (17-59) 12/30/17 07:09 ALT 32 U/L (21-72) 12/30/17 07:09 Alkaline Phosphatase 52 U/L (38-126) 12/30/17 07:09 Total Protein 5.7 g/dL (6.3-8.3) L 12/30/17 07:09 Albumin 2.8 g/dL (3.5-5.0) L 12/30/17 07:09 Globulin 2.8 gm/dL (2.2-3.9) 12/30/17 07:09 Albumin/Globulin Ratio 1.0 (1.0-2.1) 12/30/17 07:09 Triglycerides 108 mg/dL (0-149) 12/28/17 07:20 Cholesterol 144 mg/dL (0-199) 12/28/17 07:20 LDL Cholesterol Direct 89 mg/dL (0-129) 12/28/17 07:20 HDL Cholesterol 32 mg/dL (30-70) 12/28/17 07:20 Lipase 85 U/L (23-300) 12/27/17 18:00 Free PSA 0.4 ng/mL 12/28/17 07:20 % Free PSA 20 % (calc) (>25) L 12/28/17 07:20 Total PSA 2.0 ng/mL (< or = 4.0) 12/28/17 07:20 TSH 3rd Generation 0.71 mIU/L (0.46-4.68) 12/28/17 07:20 Urine Color Yellow (YELLOW) 12/27/17 18:00 Urine Clarity Clear (Clear) 12/27/17 18:00 Urine pH 6.0 (5.0-8.0) 12/27/17 18:00 Ur Specific [place] 1.024 (1.003-1.030) 12/27/17 18:00 Urine Protein 2+ mg/dL (NEGATIVE) H 12/27/17 18:00 Urine Glucose (UA) 3+ mg/dL (Normal) H 12/27/17 18:00 Urine Ketones 1+ mg/dL (NEGATIVE) H 12/27/17 18:00 Urine Blood Negative (NEGATIVE) 12/27/17 18:00 Urine Nitrate Negative (NEGATIVE) 12/27/17 18:00 Urine Bilirubin Negative (NEGATIVE) 12/27/17 18:00 Urine Urobilinogen Normal mg/dL (0.2-1.0) 12/27/17 18:00 Ur Leukocyte Esterase Neg Thea/uL (Negative) 12/27/17 18:00 Urine WBC (Auto) 1 /hpf (0-5) 12/27/17 18:00 Urine RBC (Auto) < 1 /hpf (0-3) 12/27/17 18:00 Ur Squamous Epith Cells < 1 /hpf (0-5) 12/27/17 18:00 Urine Bacteria Rare (<OCC) 12/27/17 18:00 Hyaline Casts 3-5 /lpf (0-2) H 12/27/17 18:00 Serum Ketones Small (NEGATIVE) 12/27/17 22:27 - Hospital Course Hospital Course: HPI: "This is a 62yo M w/ a PMhx of HTN and DM, currently not taking his medicine (Metformin, and Lisinopril, does not remember dosages) who is coming in for a 5 day history of diarrhea, totally liquid, no blood in stools. He states that other people at home are currently with diarrhea as well, and he feels like they have been affected by the recent E. Coli outbreak; no one with blood in their stool and most people are vomiting and having diarrhea. He took loperamide, 2mg, twice, 3 days ago and 2 days ago, none yesterday or today. He has not been on DM or HTN meds in 3+ years. He states the abdominal pain started yesterday, band like in the epigastrium, that comes and goes and is described as pressure. He has never had this before. Denies any previous abdominal surgery. Denies headaches, chills, fevers,chills, chest pain, dysuria/ frequency/urgency, or lower extremity pain/swelling. Has never had colonoscopy. " Patient admitted to the hospital on 12/27/17 for sbo found on abdominal obstructive series xray and abdomen/pelvis CT. Patient had NGT placed and patient made npo and iv fluids. At 4am patient requested NG tube to be removed. Patient explained he would need it replaced if he developed worse pain or nausea/vomiting. Surgery was consulted and conservative management was continued. Patient's pain dissipated and liquid diet was started which patient tolerated. Regular diet was then started after which patient developed abdominal pain and increased gas. Patient was placed back on a liquid diet and given simethicone which helped relieve his symptoms. While in the hospital patient was also treated for his chronic comorbidities. Patient's electrolytes were monitored and replaced as needed. For patient's history of diabetes HgA1C was checked and found to be 11.3. Patient's sugars were checked ACHS and placed on a insulin sliding scale. Patient had a few elevated blood pressure reading while in the hospital. Patient will be discharged with Lisinopril and will need to follow up at the clinic. Patient has a significant history of smoking and it is recommended that he gets a chest CT as an outpatient. Upon discharge patient had tolerated his breakfast and his abdominal pain had resolved. This is a summary of the patient's hospital course, please see chart for full details. Discharge Exam - Head Exam Head Exam: ATRAUMATIC, NORMAL INSPECTION, NORMOCEPHALIC - Eye Exam Eye Exam: EOMI, Normal appearance Pupil Exam: NORMAL ACCOMODATION, PERRL - ENT Exam ENT Exam: Mucous Membranes Moist - Respiratory Exam Respiratory Exam: Clear to PA & Lateral, NORMAL BREATHING PATTERN, UNREMARKABLE. absent: Rales, Rhonchi, Wheezes, Respiratory Distress, Stridor - Cardiovascular Exam Cardiovascular Exam: REGULAR RHYTHM, RRR, +S1, +S2. absent: JVD - GI/Abdominal Exam GI & Abdominal Exam: Normal Bowel Sounds, Soft. absent: Firm, Guarding, Tenderness - Extremities Exam Extremities exam: normal inspection - Neurological Exam Neurological exam: Alert, Oriented x3 - Psychiatric Exam Psychiatric exam: Normal Affect, Normal Mood - Skin Skin Exam: Intact, Normal Color, Warm Discharge Plan - Discharge Medications Prescriptions: GlipiZIDE [Glucotrol] 5 mg PO DAILY #30 tab Lisinopril 2.5 mg PO DAILY #30 tablet metFORMIN [glucOPHAGE] 1,000 mg PO BID #60 tab - Follow Up Plan Condition: STABLE Disposition: HOME/ ROUTINE Instructions: Diarrhea in Adolescents and Adults, Hypokalemia (DC), Acute Abdomen (Belly Pain), Adult (DC), Glipizide and Metformin, Lisinopril, Hypertension (GEN) Additional Instructions: Patient stable for discharge as per Dr. Moreno and surgery. Patient should follow up with [facility] (basement floor) within 1 week of discharge for further diabetic management. Patient needs to start taking Glipizide 5mg by mouth daily, Metformin 1000 mg twice a day, and Lisinopril 2.5mg daily. Patient to check his blood sugar when he wakes up, before lunch, before dinner, and before bed. Patient to eat a bland diet which he can slowly advance. Patient should not eat anything that is very spicy or fatty until tolerating bland foods first. Patient to return to Emergency Room if symptoms return. Patient explained instructions who understands and agrees. Referrals: [facility] [Provider Group] <Essie Moreno - Last Filed: 12/30/17 17:01> Provider - Provider Date of Admission: 12/27/17 21:49 Attending physician: Johann Alicea MD Hospital Course - Lab Results Lab Results: Most Recent Lab Values WBC 6.1 K/uL (4.8-10.8) 12/30/17 07:09 RBC 4.25 Mil/uL (4.40-5.90) L 12/30/17 07:09 Hgb 13.6 g/dL (12.0-18.0) 12/30/17 07:09 Hct 38.1 % (35.0-51.0) 12/30/17 07:09 MCV 89.5 fL (80.0-94.0) 12/30/17 07:09 MCH 31.9 pg (27.0-31.0) H 12/30/17 07:09 MCHC 35.6 g/dL (33.0-37.0) 12/30/17 07:09 RDW 12.6 % (11.5-14.5) 12/30/17 07:09 Plt Count 296 K/uL (130-400) 12/30/17 07:09 MPV 7.8 fL (7.2-11.7) 12/30/17 07:09 Neut % (Auto) 60.8 % (50.0-75.0) 12/30/17 07:09 Lymph % (Auto) 23.6 % (20.0-40.0) 12/30/17 07:09 [place] % (Auto) 12.2 % (0.0-10.0) H 12/30/17 07:09 Eos % (Auto) 2.8 % (0.0-4.0) 12/30/17 07:09 Baso % (Auto) 0.6 % (0.0-2.0) 12/30/17 07:09 Neut # (Auto) 3.7 K/uL (1.8-7.0) 12/30/17 07:09 Lymph # (Auto) 1.4 K/uL (1.0-4.3) 12/30/17 07:09 [place] # (Auto) 0.7 K/uL (0.0-0.8) 12/30/17 07:09 Eos # (Auto) 0.2 K/uL (0.0-0.7) 12/30/17 07:09 Baso # (Auto) 0.0 K/uL (0.0-0.2) 12/30/17 07:09 Sodium 134 mmol/L (132-148) 12/30/17 07:09 Potassium 3.7 mmol/L (3.6-5.2) 12/30/17 07:09 Chloride 99 mmol/L (98-107) 12/30/17 07:09 Carbon Dioxide 27 mmol/L (22-30) 12/30/17 07:09 Anion Gap 12 (10-20) 12/30/17 07:09 BUN 2 mg/dL (9-20) L 12/30/17 07:09 Creatinine 0.6 mg/dL (0.8-1.5) L 12/30/17 07:09 Est GFR ( Amer) > 60 12/30/17 07:09 Est GFR (Non-Af Amer) > 60 12/30/17 07:09 POC Glucose (mg/dL) 220 mg/dL (65-110) H 12/30/17 11:21 Random Glucose 182 mg/dL (75-110) H 12/30/17 07:09 Hemoglobin A1c 11.3 % (4.2-6.5) H D 12/28/17 07:20 Calcium 8.1 mg/dl (8.6-10.4) L 12/30/17 07:09 Phosphorus 2.8 mg/dL (2.5-4.5) 12/30/17 07:09 Magnesium 1.9 mg/dL (1.6-2.3) 12/30/17 07:09 Total Bilirubin 0.5 mg/dL (0.2-1.3) 12/30/17 07:09 AST 27 U/L (17-59) 12/30/17 07:09 ALT 32 U/L (21-72) 12/30/17 07:09 Alkaline Phosphatase 52 U/L (38-126) 12/30/17 07:09 Total Protein 5.7 g/dL (6.3-8.3) L 12/30/17 07:09 Albumin 2.8 g/dL (3.5-5.0) L 12/30/17 07:09 Globulin 2.8 gm/dL (2.2-3.9) 12/30/17 07:09 Albumin/Globulin Ratio 1.0 (1.0-2.1) 12/30/17 07:09 Triglycerides 108 mg/dL (0-149) 12/28/17 07:20 Cholesterol 144 mg/dL (0-199) 12/28/17 07:20 LDL Cholesterol Direct 89 mg/dL (0-129) 12/28/17 07:20 HDL Cholesterol 32 mg/dL (30-70) 12/28/17 07:20 Lipase 85 U/L (23-300) 12/27/17 18:00 Free PSA 0.4 ng/mL 12/28/17 07:20 % Free PSA 20 % (calc) (>25) L 12/28/17 07:20 Total PSA 2.0 ng/mL (< or = 4.0) 12/28/17 07:20 TSH 3rd Generation 0.71 mIU/L (0.46-4.68) 12/28/17 07:20 Urine Color Yellow (YELLOW) 12/27/17 18:00 Urine Clarity Clear (Clear) 12/27/17 18:00 Urine pH 6.0 (5.0-8.0) 12/27/17 18:00 Ur Specific [place] 1.024 (1.003-1.030) 12/27/17 18:00 Urine Protein 2+ mg/dL (NEGATIVE) H 12/27/17 18:00 Urine Glucose (UA) 3+ mg/dL (Normal) H 12/27/17 18:00 Urine Ketones 1+ mg/dL (NEGATIVE) H 12/27/17 18:00 Urine Blood Negative (NEGATIVE) 12/27/17 18:00 Urine Nitrate Negative (NEGATIVE) 12/27/17 18:00 Urine Bilirubin Negative (NEGATIVE) 12/27/17 18:00 Urine Urobilinogen Normal mg/dL (0.2-1.0) 12/27/17 18:00 Ur Leukocyte Esterase Neg Thea/uL (Negative) 12/27/17 18:00 Urine WBC (Auto) 1 /hpf (0-5) 12/27/17 18:00 Urine RBC (Auto) < 1 /hpf (0-3) 12/27/17 18:00 Ur Squamous Epith Cells < 1 /hpf (0-5) 12/27/17 18:00 Urine Bacteria Rare (<OCC) 12/27/17 18:00 Hyaline Casts 3-5 /lpf (0-2) H 12/27/17 18:00 Serum Ketones Small (NEGATIVE) 12/27/17 22:27 Attending/Attestation - Attestation I have personally seen and examined this patient.: Yes I have fully participated in the care of the patient.: Yes I have reviewed all pertinent clinical information, including history, physical exam and plan: Yes Notes (Text): Patient was noncompliance with his diabetic medication. had long discussion about checking sugar start taking meds and follow with a physician. Patient was explained about terminal operations supervisor complication and the importance of checking his sugar ,diet and medication in detail 12/30/17 17:00
== END 2017-12-30 11:37 | disposition home or self-care (01) | DRG 389 ==
LOC: C.ER 17:15 → C.9E 21:49 → C.3T 22:14
PROVIDERS: ADMIT Internal Medicine; ATTEND Internal Medicine
DX: K56.609 Unspecified intestinal obstruction, unspecified as to partial versus complete obstruction (principal); E87.1 Hypo-osmolality and hyponatremia; I10 Essential (primary) hypertension; E87.6 Hypokalemia; E11.65 Type 2 diabetes mellitus with hyperglycemia; Z91.14 Patient's other noncompliance with medication regimen; Z98.1 Arthrodesis status; E11.9 Type 2 diabetes mellitus without complications; Z79.4 Long term (current) use of insulin; Z87.891 Personal history of nicotine dependence